=== PATIENT | male | born 1985 | race Caucasian/White ===

== ENCOUNTER 2016-12-05 10:11 | Emergency (ER) | payer OTHER ==
[~2016-12-05] VITALS: Ht 167.6 cm; Wt 106.6 kg
[~2016-12-05 10:11] MED LIST: ACYCLOVIR200 MG PO; HUMALOG100 U/ML SC; NORVASC10 MG PO; OMEPRAZOLE DR20 M1 PO; REN800 PO; SENSIPAR30 M1 PO; SOD650 PO; TYLENOL325 MG PO
[2016-12-05 11:43] LABS: BASOPHIL % 0.5 % (0-2); PLATELET COUNT 168 x10^3mcL (130-400); RED CELL DISTRIBUTION WIDTH 13.6 % (11.5-14.5)
[2016-12-05 12:03] LABS: BILIRUBIN TOTAL 0.85 mg/dL (0.20-1.00); CALCIUM 8.4 mg/dL (8.5-10.1); CARBON DIOXIDE 29.5 mmol/L (21-32); POTASSIUM SERUM 3.5 mmol/L (3.5-5.1); TOTAL PROTEIN, SERUM 7.6 g/dL (6.4-8.2)
[2016-12-05 12:06] LABS: CREATININE SERUM 8.3 mg/dL (0.7-1.3)
[2016-12-05 12:31] VITALS: BP 127/73
== END 2016-12-05 12:31 | disposition home or self-care (01) ==
LOC: ED 10:11
PROVIDERS: Emergency Medicine
DX: R55 Syncope and collapse (principal); D64.9 Anemia, unspecified; E11.22 Type 2 diabetes mellitus with diabetic chronic kidney disease; I12.0 Hypertensive chronic kidney disease with stage 5 chronic kidney disease or end stage renal disease; N18.6 End stage renal disease; Z99.2 Dependence on renal dialysis; Z79.4 Long term (current) use of insulin; Z88.8 Allergy status to other drugs, medicaments and biological substances

== ENCOUNTER 2018-12-17 08:04 | Inpatient (IN) | payer OTHER ==
[~2018-12-17] VITALS: Ht 170.2 cm; Wt 115.3 kg
[2018-12-17 08:08] VITALS: Ht 170.2 cm; Wt 115.3 kg
[2018-12-17 08:45] LABS: BASOPHIL % 0.5 % (0-2); PLATELET COUNT 178 x10^3mcL (130-400); RED CELL DISTRIBUTION WIDTH 13.1 % (11.5-14.5)
[2018-12-17 09:10] LABS: T3 TOTAL 0.89 ng/mL
[2018-12-17 09:11] LABS: ALBUMIN 3.9 g/dL (3.4-5.0); BILIRUBIN TOTAL 0.6 mg/dL (0.20-1.00); CALCIUM 8.7 mg/dL (8.5-10.1)
[2018-12-17 09:16] LABS: CHOLESTEROL/HDL RATIO 2.6; POTASSIUM SERUM 5.8 mmol/L (3.5-5.1)
[2018-12-17 09:17] LABS: CREATININE SERUM 16.7 mg/dL (0.7-1.3)
[2018-12-17 09:22] LABS: FREE THYROXINE INDEX 2.6 ug/dL (1.4-4.5); T4(THYROXINE) 7.1 ug/dL (4.7-13.3)
[2018-12-17] MEDS ORDERED: PRO30 PO (13:50)
[2018-12-17 15:53] VITALS: BP 148/88
[2018-12-17 17:38] VITALS: BP 138/89
[2018-12-17 21:21] VITALS: BP 124/61
[2018-12-18 05:31] VITALS: BP 114/54
[2018-12-18 10:35] VITALS: BP 144/77
[2018-12-18 13:05] VITALS: BP 130/64
[2018-12-18 17:10] LABS: CALCIUM 8.3 mg/dL (8.5-10.1); CARBON DIOXIDE 25.3 mmol/L (21-32); POTASSIUM SERUM 5.5 mmol/L (3.5-5.1)
[2018-12-18 17:18] LABS: CREATININE SERUM 15.5 mg/dL (0.7-1.3)
[2018-12-18 17:31] VITALS: BP 115/68
[2018-12-18 21:05] VITALS: BP 125/66
[2018-12-19 05:53] VITALS: BP 111/66
[2018-12-19 06:14] LABS: BASOPHIL % 0.5 % (0-2); PLATELET COUNT 135 x10^3mcL (130-400); RED CELL DISTRIBUTION WIDTH 12.9 % (11.5-14.5)
[2018-12-19 06:32] LABS: CALCIUM 8.9 mg/dL (8.5-10.1); CARBON DIOXIDE 26.8 mmol/L (21-32); POTASSIUM SERUM 4.5 mmol/L (3.5-5.1)
[2018-12-19 06:51] LABS: CREATININE SERUM 12.2 mg/dL (0.7-1.3)
[2018-12-19 09:21] VITALS: BP 113/76
[2018-12-19 13:09] VITALS: BP 134/61
[2018-12-19 18:34] VITALS: BP 128/82
[2018-12-19 20:39] VITALS: BP 138/84
[2018-12-20] VITALS (7 sets, daily range): BP systolic 101–148; BP diastolic 61–87
[2018-12-20 06:21] LABS: BASOPHIL % 0.5 % (0-2); PLATELET COUNT 138 x10^3mcL (130-400); RED CELL DISTRIBUTION WIDTH 12.5 % (11.5-14.5)
[2018-12-20 06:44] LABS: CALCIUM 8.8 mg/dL (8.5-10.1); CARBON DIOXIDE 22.9 mmol/L (21-32); MAGNESIUM 2.2 mg/dL (1.8-2.4); POTASSIUM SERUM 5.2 mmol/L (3.5-5.1)
[2018-12-20 07:24] LABS: CREATININE SERUM 15.5 mg/dL (0.7-1.3)
[2018-12-21 05:24] VITALS: BP 124/75
[2018-12-21 08:40] VITALS: BP 128/84
[2018-12-21 10:55] LABS: CALCIUM 9.6 mg/dL (8.5-10.1); CARBON DIOXIDE 27.4 mmol/L (21-32)
[2018-12-21 11:05] LABS: BASOPHIL % 0.5 % (0-2); PLATELET COUNT 148 x10^3mcL (130-400); RED CELL DISTRIBUTION WIDTH 12.9 % (11.5-14.5)
[2018-12-21 12:57] VITALS: BP 128/84
== END 2018-12-21 14:00 | disposition home or self-care (01) | DRG 417 ==
LOC: ED 08:04 → MU 12:51 → ED 12:51 → DU 12:51 → MU 14:17 → DU 14:21 → MU 14:21 → DU 14:21 → MU 12-20 23:59
PROVIDERS: Internal Medicine; Specialist; Surgery; ADMIT Internal Medicine
PROC: 0FT44ZZ Resection of Gallbladder, Percutaneous Endoscopic Approach (ICD-10-PCS; principal; 2018-12-19 10:00)
DX: K80.20 Calculus of gallbladder without cholecystitis without obstruction (principal); N18.6 End stage renal disease; I12.0 Hypertensive chronic kidney disease with stage 5 chronic kidney disease or end stage renal disease; E11.22 Type 2 diabetes mellitus with diabetic chronic kidney disease; E87.5 Hyperkalemia; Z99.2 Dependence on renal dialysis; Z79.4 Long term (current) use of insulin
CPT/HCPCS: 36600; 82962; 83880; 84439; 87804; C9113; J0330; J1170; J1815; J1885; J2270; J2405; J2543; J2704; J3010; J3490; J7030; J7050; Q0092